=== PATIENT | female | born 1945 | race Caucasian/White ===

== ENCOUNTER 2022-08-30 09:44 | Emergency (ER) | payer OTHER ==
[2022-08-30 09:53] VITALS: BP 147/78; PULSE 89; RESP 16; TEMP 98; BMI 28.1
[2022-08-30] MEDS ORDERED: TRIAMCINOLONE HEXACETONIDE 20 MG/1 ML VIAL IAR ONE (10:27)
[2022-08-30] MEDS ORDERED: LIDOCAINE HCL 1%, 10 MG/ML (50 mL VIAL) INF ONE (10:48)
[2022-08-30] MEDS ORDERED: TRIAMCINOLONE ACET 40MG/1ML VIAL IJ ONE (10:48)
[2022-08-30] MEDS ORDERED: LIDOCAINE HCL 1%, 10 MG/ML (20ML VIAL) ONE (11:04)
== END 2022-08-30 11:46 | disposition home or self-care (01) ==
LOC: FER 09:44
PROC: 0S9C3ZZ Drainage of Right Knee Joint, Percutaneous Approach (ICD-10-PCS; principal; 2022-08-30)
DX: M25.561 Pain in right knee (principal)
CPT/HCPCS: 73562-TC-LT-FY; 73562-TC-RT-FY; 99283-25